=== PATIENT | male | born 1955 | race African-American/Black ===

== ENCOUNTER 2020-02-22 15:06 | Emergency (ER) | payer SELFPAY ==
[~2020-02-22] VITALS: Ht 167.6 cm; Wt 95.7 kg
--- NOTE | 2020-02-22 15:54 | PHYS DOC ---
Past History Past Medical History: CAD, High Cholesterol, Hypertension Past Surgical History: Other Additional Past Surgical Histo: RIGHT KNEE SURGERY; LEFT ACHILLES TENDON REPAI R; "A KNOT" TAKEN OUT L LEG Alcohol Use: None Social History Narrative: HX MULTI DRUG USE IN 60'S General Adult EDM: Chief Complaint: BACK PAIN - NO INJURY HPI: HPI: Cleve Restrepo is a 65-year-old male who presents with back pain. He states that 12 days ago he was moving to a new apartment and had to sleep on the floor for the first week due to his furniture not being delivered on time. He states that starting 10 days ago he began to have an achy 6/10 right lower back pain that is exacerbated to a 10 out of 10 sharp pain when he bends forward. He affirms numbness and tingling going down his right leg, which he states is not correlate d with onset of back pain. Patient states that he primarily sleeps on his stomach. He affirms history of IV drug abuse with cessation approximately 15 years ago. He denies all other complaints including fever, loss of sensation, and loss of bowel control. Patient has not taken anything for the pain at this point. He drove himself to the appointment today. 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 Review of Systems: Review of Systems: Constitutional: Denies fever or chills HENT: Denies nasal congestion or sore throat Respiratory: Denies cough or shortness of breath Cardiovascular: Denies chest pain or palpitations GI: Denies abdominal pain, nausea, or vomiting : Denies dysuria, hematuria, or loss of control Musculoskeletal: Denies joint pain; affirms back pain Integument: Denies rash or skin lesions Neurologic: Denies headache or focal weakness; affirms numbness tingling in right leg Complete systems were reviewed and found to be within normal limits, except as documented in this note. Allergies: Allergies: Allergies Coded Allergies Type Severity Reaction Last Updated Verified No Known Drug Allergies 02/22/20 No Physical Exam: PE: Constitutional: Well developed, well nourished, no acute distress, non-toxic appearance HENT: Normocephalic, atraumatic Lungs & Thorax: No respiratory distress, equal chest rise and fall Cardiac: Regular rate rhythm, no murmur Skin: Warm, dry, no erythema, no rash Back: No CVA tenderness; mild tenderness to palpation of left paraspinal muscles at approximately the level of L1, range of motion limited due to patient tenderness Extremities: Sensation intact in bilateral lower extremities Neurologic: Alert and oriented X 3, normal motor function, normal sensory function, no focal deficits noted Psychologic: Affect normal, judgment normal Current Patient Data: Vital Signs: Vital Signs Date Time Temp Pulse Resp B/P (MAP) Pulse Ox O2 Delivery O2 Flow Rate FiO2 02/22/20 15:15 98.6 78 18 115/57 (76) 97 Room Air Course & Med Decision Making: Course & Med Decision Making Patient presented with back pain as described above. Given the nature of his presentation as well as the preceding event of moving, I consider his back pain likely musculoskeletal in etiology. Patient has been sleeping on the floor up until a couple days ago when his furniture got here, so I think his sciatic distribution numbness and tingling is likely secondary to piriformis muscle inflammation. Patient will be given Toradol and dexamethasone in the emergency department and discharged. Advised the patient to rest and ice the area as needed as well as using [id number] ibuprofen or Tylenol for pain as needed. Dragon Disclaimer: Dragon Disclaimer: This electronic medical record was generated, in whole or in part, using a voice recognition dictation system. Departure Departure: Impression: Primary Impression: Back pain Qualified Codes: M54.41 - Lumbago with sciatica, right side Additional Impression: Sciatica Qualified Codes: M54.31 - Sciatica, right side Disposition: 01 HOME/RESIDENCE PRIOR TO ADM Condition: STABLE Referrals: PCP,NO (PCP) Patient Instructions: Back Pain, Adult, [id number], Sciatica, [id number] Additional Instructions: Call Dr. Cristo Raza (pain management) at [facility] for further evaluation and treatment in next 3-7 days. Address: [address] [place] [address], [place] [address] Scripts Lidocaine (Lidocaine PATCH ) 1 Each Adh..patch 1 EACH TP DAILY for FOR LOCAL PAIN, #10 PATCH REMOVE AFTER 12 HOURS AND THEN LEAVE OFF FOR NEXT 12 HOURS BEFORE PLACING NEW PATCH Prov: AGUSTIN ARZATE DO 02/22/20 Naproxen (NAPROXEN) 375 Mg Tablet. 375 MG PO TID PRN PRN for PAIN, #30 TAB Prov: AGUSTIN ARZATE DO 02/22/20 Orphenadrine Citrate (ORPHENADRINE CITRATE) 100 Mg Tablet.er 1 TAB PO BID PRN for MUSCLE PAIN, #14 TAB 0 Refills Prov: AGUSTIN ARZATE DO 02/22/20 Justification of Admission: Justification of Admission: Justification of Admission Dx: N/A AGUSTIN ARZATE DO Feb 22, 2020 15:54
[2020-02-22 15:56] VITALS: BP 125/80
[2020-02-22] MEDS: DEXAMETHASONE 4 MG TABLET PO ONE (16:01)
[2020-02-22] MEDS: KETOROLAC 30 MG/ML VIAL. IM ONE (16:02)
[2020-02-22] MEDS ORDERED: LIDO700A21 TP (16:06)
[2020-02-22] MEDS ORDERED: ORPH-16 PO (16:06)
[2020-02-22] MEDS ORDERED: NAPR375T5 PO (16:06)
== END 2020-02-22 16:15 | disposition home or self-care (01) ==
LOC: ER 15:06
DX: M54.41 Lumbago with sciatica, right side (principal); I25.10 Atherosclerotic heart disease of native coronary artery without angina pectoris; E78.00 Pure hypercholesterolemia, unspecified; I10 Essential (primary) hypertension
CPT/HCPCS: 82947; 96372; 99283; J1885; J8540